=== PATIENT | male | born 1995 | race American Indian/Alaskan Native ===

== ENCOUNTER 2021-05-21 22:39 | Emergency (ER) | payer SELFPAY ==
[2021-05-22] MEDS ORDERED: IBUPROFEN 600 MG TAB PO ONE (03:06)
[2021-05-22] MEDS ORDERED: ONDANSETRON 4 MG ODT TAB PO ONE (03:06)
[2021-05-22] MEDS ORDERED: CLINDAMYCIN 300 MG CAP PO ONE (03:06)
[2021-05-22] MEDS ORDERED: SULFAMETHOXAZOLE/TRIMETHOPRIM 800/160MG DS TAB PO ONE (03:06)
[2021-05-22] MEDS ORDERED: LIDOCAINE (1%) 10 MG/1 ML VIAL 20 ML MDV INFILTRATI ONE (03:06)
[2021-05-22] MEDS ORDERED: HYDROcodone/ACETAMINOPHEN 5-325 MG TAB PO ONE (03:06)
--- NOTE | 2021-05-22 03:32 | Emergency Department Report ---
ED General Adult HPI - General Chief complaint: Skin/Abscess/Foreign Body Stated complaint: LT HIP BOIL Source: patient Mode of arrival: Ambulatory Limitations: No Limitations - History of Present Illness Initial comments: Patient is a 25-year-old -[place] male with no past medical history presents to the ED with complaint of acute onset persistent painful swollen left lateral hip rash for the last 3 days. Patient stated the swelling and the pain got worse in the last 24 hours. Patient denies fever, chills, nausea and vomiting, numbness and tingling or weakness of left leg, dizziness, syncope, chest pain, shortness of breath, traumatic injury or fall or low back pain. MD Complaint: swollen painful rash on left lateral hip -: Sudden, days(s) (3) Location: lower extremity (left lateral hip) Radiation: non-radiation Severity scale (0 -10): 7 Quality: aching, sharp Consistency: constant Improves with: none Worsens with: movement Associated Symptoms: rash. denies: chest pain, cough, diaphoresis, fever/chills, headaches, loss of appetite, malaise, nausea/vomiting, seizure, shortness of breath, syncope, weakness Treatments Prior to Arrival: none - Related Data Previous Rx's Medication Instructions Recorded Last Taken Type Clindamycin [Clindamycin CAP] 300 mg PO Q8H #30 cap 05/22/21 Unknown Rx Ibuprofen [Motrin] 600 mg PO Q8H PRN #30 tablet 05/22/21 Unknown Rx Sulfamethoxazole/Trimethoprim 1 each PO Q12H #20 tab 05/22/21 Unknown Rx [Bactrim DS TAB] traMADoL [Ultram] 50 mg PO Q6HR PRN #10 tablet 05/22/21 Unknown Rx Allergies Allergy/AdvReac Type Severity Reaction Status Date / Time No Known Allergies Allergy Verified 05/22/21 03:15 ED Review of Systems ROS: Stated complaint: LT HIP BOIL Other details as noted in HPI Constitutional: denies: chills, fever Eyes: denies: eye pain, eye discharge, vision change ENT: denies: ear pain, throat pain Respiratory: denies: cough, shortness of breath, wheezing Cardiovascular: denies: chest pain, palpitations Endocrine: no symptoms reported Gastrointestinal: denies: abdominal pain, nausea, diarrhea Genitourinary: denies: urgency, dysuria Musculoskeletal: arthralgia (Left hip pain due to a swollen mild erythematous maculopapular rash on left lateral hip). denies: back pain, joint swelling Skin: rash (Swollen, painful mild erythematous maculopapular rash on lateral left hip), change in color. denies: lesions, change in hair/nails, pruritus Neurological: denies: headache, weakness, paresthesias Psychiatric: denies: anxiety, depression Hematological/Lymphatic: denies: easy bleeding, easy bruising ED Past Medical Hx - Medications Home Medications: Home Medications Medication Instructions Recorded Confirmed Last Taken Type Clindamycin [Clindamycin CAP] 300 mg PO Q8H #30 cap 05/22/21 Unknown Rx Ibuprofen [Motrin] 600 mg PO Q8H PRN #30 tablet 05/22/21 Unknown Rx Sulfamethoxazole/Trimethoprim 1 each PO Q12H #20 tab 05/22/21 Unknown Rx [Bactrim DS TAB] traMADoL [Ultram] 50 mg PO Q6HR PRN #10 tablet 05/22/21 Unknown Rx ED Physical Exam - General Limitations: No Limitations General appearance: alert, in no apparent distress - Head Head exam: Present: atraumatic, normocephalic, normal inspection - Eye Eye exam: Present: normal appearance, PERRL, EOMI Pupils: Present: normal accommodation - ENT ENT exam: Present: normal exam, normal orophraynx, mucous membranes moist, TM's normal bilaterally, normal external ear exam - Neck Neck exam: Present: normal inspection, full ROM - Respiratory Respiratory exam: Present: normal lung sounds bilaterally. Absent: respiratory distress, wheezes, rales, rhonchi, chest wall tenderness, accessory muscle use, decreased breath sounds, other - Cardiovascular Cardiovascular Exam: Present: regular rate, normal rhythm, normal heart sounds. Absent: systolic murmur, diastolic murmur, rubs, gallop - GI/Abdominal GI/Abdominal exam: Present: soft, normal bowel sounds. Absent: distended, tenderness, guarding, rebound, hyperactive bowel sounds, hypoactive bowel sounds, organomegaly - Extremities Exam Extremities exam: Present: normal inspection, full ROM, tenderness (Palpable left lateral hip tenderness due to swollen, mildly erythematous maculopapular fluctuant rash), normal capillary refill. Absent: pedal edema, joint swelling, calf tenderness - Back Exam Back exam: Present: normal inspection, full ROM. Absent: tenderness, CVA tenderness (R), CVA tenderness (L), muscle spasm, paraspinal tenderness - Neurological Exam Neurological exam: Present: alert, oriented X3, CN II-XII intact, normal gait, reflexes normal - Psychiatric Psychiatric exam: Present: normal affect, normal mood - Skin Skin exam: Present: warm, dry, intact, rash (Swollen, tender, mildly erythematous maculopapular fluctuant rash on left lateral hip), erythema. Absent: normal color ED Course Vital Signs 05/21/21 22:42 Temperature 98.3 F Pulse Rate 69 Respiratory 18 Rate Blood Pressure 120/64 O2 Sat by Pulse 98 Oximetry - I & D Left Lateral Hip Type of Procedure: Simple Site: Lateral left hip Blade Size: 11 I & D Procedure: betadine prep, sterile drapes applied, sterile dressing applied, gauze wick placed Progress: The area was cleaned extensively normal saline and Betadine solutions. Lidocaine 1% solution was infiltrated around the area for local anesthesia. When anesthesia was fully achieved, a scalpel blade #11 was used to incise the area and copious thick purulent discharge drained from the wound. The wound was debrided extensively with normal saline and loculations were broken with hemostat. The wound was packed with quarter inch iodoform gauze. Patient tolerated procedure well. The wound was then dressed with 4 x 4 gauzes and Tegaderm. ED Medical Decision Making - Medical Decision Making This is a 25-year-old -[place] male with no past medical history presents to the ED with complaint of acute onset persistent painful swollen left lateral hip rash for the last 3 days. Patient stated the swelling and the pain got worse in the last 24 hours. In the ED, patient is alert and oriented x3 and is not in any distress. Patient was treated for pain in the ED and also given oral antibiotics. The area was cleaned extensively normal saline and Betadine solutions. Lidocaine 1% solution was infiltrated around the area for local anesthesia. When anesthesia was fully achieved, a scalpel blade #11 was used to incise the area and copious thick purulent discharge drained from the wound. The wound was debrided extensively with normal saline and loculations were broken with hemostat. The wound was packed with quarter inch iodoform gauze. Patient tolerated procedure well. The wound was then dressed with 4 x 4 gauzes and Tegaderm. Patient was discharged home on pain medications and antibiotics and advised to follow-up with his primary care physician in 7 to 10 days for reevaluation or return to the ED immediately if symptoms get worse. - Differential Diagnosis Cellulitis; cutaneous abscess; acute folliculitis Critical care attestation.: If time is entered above; I have spent that time in minutes in the direct care of this critically ill patient, excluding procedure time. ED Disposition Clinical Impression: Acute folliculitis, Cellulitis of left hip, Cutaneous abscess of left hip Disposition: HOME / SELF CARE / HOMELESS Is pt being admited?: No Does the pt Need Aspirin: No Condition: Stable Instructions: Skin Abscess, [id number], Cellulitis, Adult, [id number] Additional Instructions: Take medication with food, drink plenty fluids and follow-up with your primary care physician in 7 to 10 days for reevaluation. Return to the ED immediately if symptoms get worse. Prescriptions: Sulfamethoxazole/Trimethoprim [Bactrim DS TAB] 1 each PO Q12H #20 tab Clindamycin [Clindamycin CAP] 300 mg PO Q8H #30 cap Ibuprofen [Motrin] 600 mg PO Q8H PRN #30 tablet PRN Reason: Pain traMADoL [Ultram] 50 mg PO Q6HR PRN #10 tablet PRN Reason: Pain Referrals: CYNTHIA PRO MD [Primary Care Provider] - 3-5 Days Time of Disposition: 03:30 Print Language: [id number]
[2021-05-22 03:49] VITALS: BP 138/68
== END 2021-05-22 03:49 | disposition home or self-care (01) ==
LOC: ED 22:39
DX: L73.9 Follicular disorder, unspecified (principal); L03.116 Cellulitis of left lower limb; L02.416 Cutaneous abscess of left lower limb
CPT/HCPCS: 10060; 99282; J3490; Q0162